=== PATIENT | male | born 1985 | race Caucasian/White ===

== ENCOUNTER 2018-08-16 19:38 | Emergency (ER) | payer OTHER ==
[~2018-08-16] VITALS: Ht 185.4 cm; Wt 117.9 kg
--- OUTSIDE RECORDS SUMMARY | ~2018-08-16 | XMS | Clinical Summary ---
Demographics + + + | Address | [address] | | | [place] [address] | + + + | Home Phone | | + + + | Preferred Language | Unknown | + + + | Marital Status | Single | + + + | Hoahaoism Affiliation | Unknown | + + + | Race | Unknown | + + + | Ethnic Group | Unknown | + + + Author + + + | Author | [facility] | + + + | Organization | [facility] | + + + | Address | Unknown | + + + | Phone | Unavailable | + + + Support + + +---------+ + | Name | Relationship | Address | Phone | + + +---------+ + | Laura Oleary | ECON | Unknown | | + + +---------+ + Care Team Providers + +------+ + | Care Firearms Specialist Name | Role | Phone | + +------+ + | Medicine, Benedict | PP | Unavailable | | Family | | | + +------+ + Allergies + + + + + + | Active Allergy | Reactions | Severity | Noted | Comments | | | | | Date | | + + + + + + | Morphine | Rash | Medium | 11/30/19 | | | | | | 18 | | + + + + + + Current Medications + + + +---------+------+------+-------+ | Prescription | Sig. | Disp. | Refills | Star | End | Statu | | | | | | t | Date | s | | | | | | Date | | | + + + +---------+------+------+-------+ | omeprazole | Take 20 mg by mouth | | | | | Activ | | (PRILOSEC) 20 MG | every morning before | | | | | e | | capsule | breakfast. | | | | | | + + + +---------+------+------+-------+ | propranolol | Take 1 tablet by | 60 | 11 | 11/12 | 11/12 | Activ | | (INDERAL) 20 MG | mouth 2 (two) times | tablet | | 08/01 | 08/01 | e | | tablet | daily. | | | 18 | 19 | | + + + +---------+------+------+-------+ | sucralfate | Take 10 mLs by mouth | 420 mL | 0 | 01/2 | | Activ | | (CARAFATE) 1 GM/10ML | every 6 (six) hours | | | 0/20 | | e | | suspension | for 30 days. | | | 18 | | | + + + +---------+------+------+-------+ | Heparin Sod, | Continuous heparin | | | 11/12 | | Activ | | Porcine, in D5W | drip per protocol. | | | 08/01 | | e | | (HEPARIN, PORCINE,) | | | | 18 | | | | 40-5 UNIT/ML-% | | | | | | | | infusion | | | | | | | + + + +---------+------+------+-------+ | nadolol (CORGARD) | Take 10 mg by mouth. | | | 11/13 | | Activ | | 20 MG tablet | | | | 03/31 | | e | | | | | | 18 | | | + + + +---------+------+------+-------+ | pantoprazole | Take 40 mg by mouth. | | | 11/13 | | Activ | | (PROTONIX) 40 MG | | | | 03/01 | | e | | tablet | | | | 18 | | | + + + +---------+------+------+-------+ | warfarin | Take one daily until | | | 11/13 | | Activ | | (COUMADIN) 7.5 MG | follow up with your | | | 03/01 | | e | | tablet | new dr for new INR, | | | 18 | | | | | your future doses | | | | | | | | will depend on your | | | | | | | | INR values | | | | | | + + + +---------+------+------+-------+ Active Problems + + + | Problem | Noted Date | + + + | Portal vein thrombosis | 01/24/2018 | + + + | Shortness of breath | 01/24/2018 | + + + | Anticoagulation management encounter | 01/24/2018 | + + + | History of esophageal varices with bleeding | 11/30/2017 | + + + | Protein S deficiency (HCC) | 11/30/2017 | + + + | History of melena | 11/30/2017 | + + + | Deep vein thrombosis (DVT) of popliteal vein (HCC) nonocclusive | 11/30/2017 | | on the left | | + + + | Bilateral pulmonary embolism (HCC) | 11/30/2017 | + + + Family History + + +------+ + | Medical History | Relation | Name | Comments | + + +------+ + | COPD | Maternal | | | | | Grandfath | | | | | er | | | + + +------+ + | Breast cancer | Maternal | | | | | Grandmoth | | | | | er | | | + + +------+ + | Cancer | Maternal | | | | | Grandmoth | | | | | er | | | + + +------+ + | Cancer | Paternal | | | | | Grandmoth | | | | | er | | | + + +------+ + + +------+--------+ + | Relation | Name | Status | Comments | + +------+--------+ + | Brother | | Alive | | + +------+--------+ + | Father | | Alive | | + +------+--------+ + | Maternal Grandfather | | Alive | | + +------+--------+ + | Maternal Grandmother | | Alive | | + +------+--------+ + | Mother | | Alive | | + +------+--------+ + | Paternal Grandmother | | Alive | | + +------+--------+ + Social History + +-------+ +--------+------+ | Tobacco Use | Types | Packs/Day | Years | Date | | | | | Used | | + +-------+ +--------+------+ | Never Smoker | | | | | + +-------+ +--------+------+ + +---+---+---+ | Smokeless Tobacco: | | | | | Never Used | | | | + +---+---+---+ + + +---------+ + | Alcohol Use | Drinks/We | oz/Week | Comments | | | ek | | | + + +---------+ + | Yes | | | | + + +---------+ + + + + | Sex Assigned at | Date Recorded | | | | + + + | Not on file | | + + + Last Filed Vital Signs + + + + | Vital Sign | Reading | Time Taken | + + + + | Blood Pressure | 110/80 | 01/24/2018 10:36 AM PDT | + + + + | Pulse | 65 | 01/24/2018 10:36 AM PDT | + + + + | Temperature | 36.3 C (97.4 F) | 01/24/2018 10:36 AM PDT | + + + + | Respiratory Rate | 20 | 11/30/2017 5:04 PM PST | + + + + | Oxygen Saturation | 98% | 01/24/2018 10:36 AM PDT | + + + + | Inhaled Oxygen | - | - | | Concentration | | | + + + + | Weight | 115.2 kg (254 lb) | 01/24/2018 10:36 AM PDT | + + + + | Height | 182.9 cm (6') | 01/24/2018 10:36 AM PDT | + + + + | Body Mass Index | 34.45 | 01/24/2018 10:36 AM PDT | + + + + Plan of Treatment + + + + + | Health Maintenance | Due Date | Last Done | Comments | + + + + + | Vaccine: | | | | | Dtap/Tdap/Td (1 - | 5 | | | | Tdap) | | | | + + + + + | Vaccine: Influenza | | 12/04/2017 | | | (#1) | 8 | | | + + + + + Results Not on filefrom Last 3 Months Insurance + +--------+ +------+-------+ + | Payer | Benefi | Subscriber | Type | Phone | Address | | | t Plan | ID | | | | | | / | | | | | | | Group | | | | | + +--------+ +------+-------+ + | MEDICAID | [place] | [id number] | | | [address] | | | N | | | | [place] | | | [place] | | | | [phone] | | | MANAGER RESPIRATORY CARE | | | | | + +--------+ +------+-------+ + + +--------+ +--------+ + + | Guarantor Name | Accoun | Relation to | Date | Phone | Billing Address | | | t Type | Patient | of | | | | | | | | | | + +--------+ +--------+ + + | DOMENIC HOLDER | Person | Self [birth year] | Home: | [address] | | W | al/Fam | | 1984 | [phone] | [place] [address] | | | malia | | | [phone] | | + +--------+ +--------+ + +"
--- OUTSIDE RECORDS SUMMARY | ~2018-08-16 | XMS | Clinical Summary ---
Demographics + + + | Address | [address] | | | [place] [address] | + + + | Home Phone | | + + + | Preferred Language | Unknown | + + + | Marital Status | Single | + + + | Zoroastrian Affiliation | CHR | + + + | Race | White | + + + | Ethnic Group | Not or | + + + Author + + + | Author | [facility] | + + + | Organization | [facility] | + + + | Address | Unknown | + + + | Phone | Unavailable | + + + Support + + +---------+ + | Name | Relationship | Address | Phone | + + +---------+ + | RAGHAV JAIMES | ECON | Unknown | | + + +---------+ + Care Team Providers + +------+ + | Care Parimutuel Ticket Seller Name | Role | Phone | + +------+ + | Joe Mccracken MD | PP | | + +------+ + Source Comments MILAD is fully live on both [facility] and [facility] Allergies + + + + + + | Active Allergy | Reactions | Severity | Noted | Comments | | | | | Date | | + + + + + + | Morphine | Rash | | 12/05/19 | | | | | | 17 | | + + + + + + Current Medications + + + +---------+------+------+-------+ | Prescription | Sig. | Disp. | Refills | Star | End | Statu | | | | | | t | Date | s | | | | | | Date | | | + + + +---------+------+------+-------+ | enoxaparin 120 | Inject 0.8 mL under | 60 | 2 | 07/1 | | Activ | | mg/0.8 mL | the skin (SUBC) | Syringe | | 2/20 | | e | | Subcutaneous Syringe | every twelve hours. | | | 11 | | | + + + +---------+------+------+-------+ | metoprolol | Take 1 Tab by mouth | 60 Tab | 1 | 07/1 | | Activ | | tartrate 25 mg Oral | two times daily. | | | 2/20 | | e | | Tablet | | | | 11 | | | + + + +---------+------+------+-------+ | fentaNYL 75 mcg/hr | Apply 1 Patch to | 11 | 0 | 07/1 | | Activ | | Transdermal Patch | skin every | Patch | | 2/20 | | e | | 72 hr | seventy-two hours. | | | 11 | | | + + + +---------+------+------+-------+ | lansoprazole 30 mg | Take 1 Tab by mouth | 30 Tab | 3 | 05/13 | | Activ | | Oral Tablet,Rapid | once daily in the | | | 08/01 | | e | | DR Miguel A | morning. Administer | | | 11 | | | | | before food; best if | | | | | | | | taken before | | | | | | | | breakfast. | | | | | | + + + +---------+------+------+-------+ | | Take 1-2 Tabs by | 40 Tab | 1 | 05/13 | | Activ | | HYDROcodone-acetamin | mouth every six | | | 08/01 | | e | | ophen 5-325 mg Oral | hours as needed. Not | | | 11 | | | | Tablet | to exceed 12 | | | | | | | | tablets per any 24 | | | | | | | | hour period. (Not to | | | | | | | | exceed 4000 mg of | | | | | | | | acetaminophen from | | | | | | | | all products per 24 | | | | | | | | hour period.) | | | | | | + + + +---------+------+------+-------+ | traMADol 50 mg | Take 1 tablet by | | | 12/0 | | Activ | | oral tablet | mouth as needed. | | | 01/01 | | e | | | | | | 16 | | | + + + +---------+------+------+-------+ Active Problems + + + | Problem | Noted Date | + + + | Small bowel obstruction (HCC) | 06/02/2011 | + + + | Thrombus | 05/08/2011 | + + + + + | Overview: Nonocclusive Portal vein | + + + + + | Acute pain | 05/08/2011 | + + + | Severe malnutrition (HCC) | 05/08/2011 | + + + | Wound, open, abdominal wall, anterior | 05/08/2011 | + + + | Abdominal pain | 05/03/2011 | + + + Resolved Problems + + + + | Problem | Noted | Resolved | | | Date | Date | + + + + | Leukocytosis | 05/08/20 | | | | 11 | 1 | + + + + Social History + +-------+ +--------+------+ | [...] +---------+ + | Yes | | | one or two beers /week | + + +---------+ + + + + | Sex Assigned at | Date Recorded | | | | + + + | Not on file | | + + + Last Filed Vital Signs + + + + | Vital Sign | Reading | Time Taken | + + + + | Blood Pressure | 145/78 | 12/05/2016 2:32 PM PST | + + + + | Pulse | 72 | 12/05/2016 2:32 PM PST | + + + + | Temperature | 36.8 C (98.2 F) | 12/05/2016 2:32 PM PST | + + + + | Respiratory Rate | 12 | 12/05/2016 2:32 PM PST | + + + + | Oxygen Saturation | 97% | 12/05/2016 2:32 PM PST | + + + + | Inhaled Oxygen | - | - | | Concentration | | | + + + + | Weight | 112.8 kg (248 lb 9.6 | 12/05/2016 2:32 PM PST | | | oz) | | + + + + | Height | 182.5 cm (5' 11.85") | 12/05/2016 2:32 PM PST | + + + + | Body Mass Index | 33.86 | 12/05/2016 2:32 PM PST | + + + + Plan of Treatment + + + + + | Health Maintenance | Due Date | Last Done | Comments | + + + + + | Pneumococcal (Adult) | | 01/30/2014 | | | (2 of 3 - PCV13) | 5 | | | + + + + + | Influenza (Flu) | | 01/30/2014 | | | vaccination (#1) | 8 | | | + + + + + Results Not on filefrom Last 3 Months Insurance + +--------+ +--------+-------+---------+ | Payer | Benefi | Subscriber | Type | Phone | Address | | | t Plan | ID | | | | | | / | | | | | | | Group | | | | | + +--------+ +--------+-------+---------+ | DIRECTOR CREDIT RISK MEDICAID | DIRECTOR CREDIT RISK | xxxxxxxx | Medica | | | | | [place] | | id | | | | | [place] | | | | | + +--------+ +--------+-------+---------+ + +--------+ +--------+ + + | Guarantor Name | Accoun | Relation to | Date | Phone | Billing Address | | | t Type | Patient | of | | | | | | | | | | + +--------+ +--------+ + + | DOMENIC SUMMERS | Person | Self | [birth year] | Home: | [address] [employer] | | [place] | al/[place] | | 1984 | [phone] | [place] [address] | | | malia | | | [phone] | | + +--------+ +--------+ + +
--- OUTSIDE RECORDS SUMMARY | ~2018-08-16 | XMS | Clinical Summary ---
Demographics + + + | Address | [address] | | | [place] [address] | + + + | Home Phone | | + + + | Preferred Language | Unknown | + + + | Marital Status | Single | + + + | Evangelical Affiliation | Unknown | + + + | Race | Unknown | + + + | Ethnic Group | Unknown | + + + Author + + + | Author | [facility] | | | and [place] | + + + | Organization | [facility] | | | and [place] | + + + | Address | Unknown | + + + | Phone | Unavailable | + + + Support + + + + + | Name | Relationship | Address | Phone | + + + + + | Laura Oleary | ECON | [place], [place] | | + + + + + | Gregor Scales | ECON | [address] | | | | | [address] [place] | | | | | [address] | | + + + + + Care Team Providers + +------+ + | Care Board Member Name | Role | Phone | + +------+ + | No, Physician | PP | Unavailable | + +------+ + Allergies + + + + + + | Active Allergy | Reactions | Severity | Noted | Comments | | | | | Date | | + + + + + + | Morphine | Itching, Rash | Medium | 11/30/19 | | | | | | 18 | | + + + + + + Current Medications + + +---------+---------+------+------+-------+ | Prescription | Sig. | Disp. | Refills | Star | End | Statu | | | | | | t | Date | s | | | | | | Date | | | + + +---------+---------+------+------+-------+ | nadolol (CORGARD) | Take 0.5 tablets by | 30 | 1 | 11/13 | | Activ | | 20 MG tablet | mouth Daily. | tablet | | 03/31 | | e | | | | | | 18 | | | + + +---------+---------+------+------+-------+ | pantoprazole | Take 1 tablet by | 30 | 1 | 11/13 | | Activ | | (PROTONIX) 40 mg | mouth every morning | tablet | | 4/20 | | e | | tablet | (before breakfast). | | | 18 | | | + + +---------+---------+------+------+-------+ | warfarin | Take 2 tablets by | 30 | 0 | 04/1 | | Activ | | (COUMADIN) 6 MG | mouth Daily. | tablet | | 8/20 | | e | | tablet | | | | 18 | | | + + +---------+---------+------+------+-------+ | enoxaparin | Inject 0.8 mLs under | 14 | 0 | 04/1 | | Activ | | (LOVENOX) 120 mg/0.8 | the skin every 12 | Syringe | | 8/20 | | e | | mL injection | hours. Until | | | 18 | | | | | coumadin level is >2 | | | | | | + + +---------+---------+------+------+-------+ Active Problems + + + | Problem | Noted Date | + + + | Noncompliance with medications | 02/27/2018 | + + + | Anemia | 02/24/2018 | + + + | Prolonged Q-T interval on ECG | 02/24/2018 | + + + | Antral ulcer | 12/04/2017 | + + + | Antral gastritis | 12/04/2017 | + + + | Portal hypertensive gastropathy (HCC) | 12/04/2017 | + + + | Portal vein thrombosis | 12/03/2017 | + + + | Acute deep vein thrombosis (DVT) of femoral vein of left lower | 12/02/2017 | | extremity (HCC) | | + + + | PE (pulmonary thromboembolism) ([facility]) | 11/30/2017 | + + + + + | Last Assessment & Plan: Patient with symptomatic pulmonary | | emboli. Likely secondary to his protein S deficiency. Patient | | was on warfarin but developed esophageal variceal bleeding. | | Patient restarted on heparin drip. Patient asymptomatic until he | | exerts himself. Will continue patient on heparin drip and | | transferred to ICU at [place]. | + + + + + | Protein S deficiency ([facility]) | 11/30/2017 | + + + + + | Last Assessment & Plan: Patient with history of protein S | | deficiency resulting in increased thrombophilia. Patient has | | been on Coumadin secondary to portal vein clot. This was stopped | | once patient developed variceal bleeding. Patient has not seen | | GI physician. Patient currently on heparin drip secondary to | | pulmonary emboli and right lower extremity DVT along with portal | | vein thrombus. Will await further CT findings. | + + + + + | History of necrotic bowel | 11/30/2017 | + + + + + | Last Assessment & Plan: Patient with a history of necrotic | | bowel on the past. Patient did require resection. Patient does | | not have any follow-up problems that he is aware of since that | | time. Patient does endorse on and off again rectal bleeding. | + + + + + | Esophageal varices (HCC) | 11/30/2017 | + + + + + | Last Assessment & Plan: Patient with endoscopy today showing | | ballooning of his esophageal varices. Patient was thought to be | | at very high risk for possible esophageal bleeding and was | | transferred from outside facility here. Lack of services here | | require patient being transferred to [place] for further | | evaluation and treatment. Currently patient not with esophageal | | bleeding. Patient started on octreotide and CT of the abdomen | | with pulse portal exam pending. | + + Immunizations + + + + | Name | Dates Previously Given | Next Due | + + + + | INFLUENZA PF | 12/04/2017 | | | QUAD(PED/ADOL/ADULT) | | | | ,PSKT or VIAL | | | + + + + Social History [...] +---------+ + | Yes | | | OCCASIONALLY | + + +---------+ + + + + | Sex Assigned at | Date Recorded | | | | + + + | Not on file | | + + + Last Filed Vital Signs + + + + | Vital Sign | Reading | Time Taken | + + + + | Blood Pressure | 141/83 | 02/27/20181099 PDT | + + + + | Pulse | 76 | 02/27/20181099 PDT | + + + + | Temperature | 36.1 C (97 F) | 02/27/20181099 PDT | + + + + | Respiratory Rate | 18 | 02/27/20181099 PDT | + + + + | Oxygen Saturation | 96% | 02/27/20181099 PDT | + + + + | Inhaled Oxygen | - | - | | Concentration | | | + + + + | Weight | 114.7 kg (252 lb | 02/26/20182336 PDT | | | 13.9 oz) | | + + + + | Height | 182.9 cm (6') | 02/24/2018 0950 PDT | + + + + | Body Mass Index | 34.29 | 02/26/20182336 PDT | + + + + Plan [...] filefrom Last 3 Months Insurance + +--------+ +--------+ +---------+ | Payer | Benefi | Subscriber | Type | Phone | Address | | | t Plan | ID | | | | | | / | | | | | | | Group | | | | | + +--------+ +--------+ +---------+ | [employer] | MODA | [id number] | Medica | [phone] | | MEDICAID HMO | HEALTH | | id | 9821 | | | | [place] | | | | | | | [place] | | | | | + +--------+ +--------+ +---------+ + +--------+ +--------+ + + | Guarantor Name | Accoun | Relation to | Date | Phone | Billing Address | | | t Type | Patient | of | | | | | | | | | | + +--------+ +--------+ + + | DOMENIC SUMMERS | Person | Self | [birth year] | Home: | [address] | | [place] | al/Fam | | 1984 | [phone] | [place] [address] | | | [place] | | | [address] | | + +--------+ +--------+ + +"
--- OUTSIDE RECORDS SUMMARY | ~2018-08-16 | XMS | Clinical Summary ---
Demographics + + + | Address | [address] | | | [place] [address] | + + + | Home Phone | | + + + | Preferred Language | Unknown | + + + | Marital Status | Single | + + + | Shinto Affiliation | Unknown | + + + | Race | Unknown | + + + | Ethnic Group | Unknown | + + + Author + + + | Author | [facility] | + + + | Organization | [facility] | + + + | Address | Unknown | + + + | Phone | Unavailable | + + + Support + + +---------+ + | Name | Relationship | Address | Phone | + + +---------+ + | Laura Oleary | ECON | Unknown | | + + +---------+ + Care Team Providers + +------+ + | Care Thermoscrew Operator Name | Role | Phone | + +------+ + | Medicine, [place] | PP | Unavailable | | Family [...] +------+-------+ + | MEDICAID | [place] | [id number] | | | [address] | | | [place] | | | | [place] | | | [place] | | | | [phone] | | | SLITTER PROCESSED FILM | | | | | + +--------+ [...] | Self | [birth year] | Home: | [address] | | [place] | al/Fam | | 1984 | [phone] | [place] [address] | | | [place] | | | [phone] | | + +--------+ +--------+ + +"
--- OUTSIDE RECORDS SUMMARY | ~2018-08-16 | XMS | Clinical Summary ---
Demographics + + + | Address | [address] | | | [place] [address] | + + + | Home Phone | | + + + | Preferred Language | Unknown | + + + | Marital Status | Single | + + + | Jehovah'S Witness Affiliation | Unknown | + + + | Race | Unknown | + + + | Ethnic Group | Unknown | + + + Author + + + | Author | [facility] | | | and [place] | + + + | Organization | [facility] | | | and [place] | [...] [address] [place] | | | | | [address] | | + + + + + Care Team Providers + +------+ + | Care Suction Worker Name | Role | Phone | + [...] + + + | [facility] | 11/30/2017 | + + + + [...] and | | transferred to ICU at [place]. | + + + + + | Protein S deficiency ([facility]) | 11/30/2017 | + + + + [...] | | require patient being transferred to [place] for further | | evaluation and treatment. [...] | [employer] | MODA | [id number] | Medica | [phone] | | | MEDICAID HMO | HEALTH [...] | 1984 | [phone] | [place] [address] | | | [place] | | | [phone] | | + +--------+ +--------+ + +"
--- OUTSIDE RECORDS SUMMARY | ~2018-08-16 | XMS | Clinical Summary ---
Demographics + + + | Address | [address] | | | [place] [address] | + + + | Home Phone | | + + + | Preferred Language | Unknown | + + + | Marital Status | Single | + + + | Church Affiliation | [employer] | + + + [...] Team Providers + +------+ + | Care Bath Steward Name | Role | Phone | + +------+ + | Joe Mccracken MD | PP | | + +------+ + Source Comments MILAD is fully live on both [facility] and [facility] Allergies + + + + [...] | | | + +--------+ +--------+-------+---------+ | CREDIT COMPLIANCE OFFICER MEDICAID | CREDIT COMPLIANCE OFFICER | xxxxxxxx | Medica | | | [...] [birth year] | Home: | [address] [employer] | | FRANK | al/Jeffrey | | 1984 | [phone] [place] [address] | | | malia | | | [phone] | | + +--------+ +--------+ + +
[~2018-08-16 19:38] MED LIST: BACTRIM DS TAB1 EACH PO; COUMADIN10 MG PO; COUMADIN5 MG PO; DOXYCYCLINE HY100 MG PO; HYDROCHLOROTHIA25 MG PO; IBUPROFEN600 MG PO; INDOMETHACIN50 MG PO; KEFLEX250 MG PO; KEFLEX500 MG PO; MIRALAX17 GM PO; NAPROXEN500 MG PO; NICOTINE PATCH1 EACH TD; NORCO 5-325 TA1 EACH PO; NORCO 7.5-3251 EACH PO; PANTOPRAZOLE SO40 MG PO; PERCOCET 10-321 EACH PO; TRAMADOL HCL50 MG PO; VICODIN 5-3001 EACH PO; WARFARIN SODIUM5 MG PO; ZOFRAN ODT4 MG PO
--- OUTSIDE RECORDS SUMMARY | 2018-08-16 19:44 | XMS ---
PreManage Notification: LLOYD SUMMERS Security Tool Planer Set Up Operator Events No recent Security Events currently on file CRITERIA MET - Group Notification CARE PROVIDERS There are no care providers on record at this time. Xavier has no Care Guidelines for this patient. EJennifer VISIT COUNT (12 MO.) [address] [place] [address] [place] TOTAL 6 NOTE: Visits indicate total known visits. ED/C VISIT TRACKING (12 MO.) 08/16/2018 19:40 [facility] [place] TYPE: Emergency COMPLAINT: - COLD SYMPTOMS 02/24/2018 01:56 [facility] [employer] [place] System TYPE: Emergency COMPLAINT: - TROUBLES BREATHING DIAGNOSES: - Other pulmonary embolism without acute cor pulmonale [facility] DIAGNOSES: - Other pulmonary embolism without acute cor pulmonale - Pain, unspecified - Shortness of Breath 11/29/2017 23:10 [facility] [employer] [place] System TYPE: Emergency COMPLAINT: - SHORTNESS OF BREATH DIAGNOSES: - Secondary esophageal varices without bleeding - Other primary thrombophilia - Gastrointestinal hemorrhage, unspecified - Other pulmonary embolism with acute cor pulmonale - PULMONARY HYPERTENSION, UNSPECIFIED - Portal hypertension 11/19/2017 07:[address] [facility] [place] TYPE: Emergency COMPLAINT: - POSS INTERNAL BLEEDING DIAGNOSES: - Gastrointestinal hemorrhage, unspecified 09/17/2017 08:30 [facility] [place] System TYPE: Emergency COMPLAINT: - L LEG PAIN DIAGNOSES: - Pain in left lower leg INPATIENT VISIT TRACKING (12 MO.) 02/24/2018 09:46 [facility] TYPE: Cardiology DIAGNOSES: - Iron deficiency anemia secondary to blood loss (chronic) - Other primary thrombophilia - Esophageal varices without bleeding - Portal vein thrombosis - Abnormal electrocardiogram [ECG] [EKG] - pulmonary emboli - Other pulmonary embolism without acute cor pulmonale - Portal hypertension - Other diseases of stomach and duodenum 12/01/2017 01:00 [facility] TYPE: Transplant DIAGNOSES: - Other pulmonary embolism without acute cor pulmonale - Other primary thrombophilia - Acute embolism and thrombosis of unspecified deep veins of unspecified lower extremity - Esophageal varices without bleeding - Other diseases of stomach and duodenum - Portal vein thrombosis - Secondary esophageal varices without bleeding - Portal hypertension - Acute embolism and thrombosis of left femoral vein 11/30/2017 21:26 [facility] TYPE: Cardiology DIAGNOSES: - Acute Bilateral PE 11/30/2017 04:35 [facility] TYPE: General Medicine DIAGNOSES: - Other pulmonary embolism without acute cor pulmonale - Pain, unspecified [email or web address]
[2018-08-16] MEDS ORDERED: ELIQUIS5 MG PO (19:57)
[2018-08-16] MEDS ORDERED: TESSALON PERLE100 MG PO (21:05)
== END 2018-08-16 21:14 | disposition home or self-care (01) ==
LOC: ED 19:38
DX: J20.9 Acute bronchitis, unspecified (principal); Z88.5 Allergy status to narcotic agent
CPT/HCPCS: 99283

== ENCOUNTER 2021-03-23 00:08 | Emergency (ER) | payer OTHER ==
[~2021-03-23] VITALS: Ht 185.4 cm; Wt 122.9 kg
[~2021-03-23 00:08] MED LIST changes: +ELIQUIS5 MG PO; +TESSALON PERLE100 MG PO
--- OUTSIDE RECORDS SUMMARY | 2021-03-23 00:10 | XMS ---
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 Care History Medical/Surgical 08/19/2018 [facility] - CHW SPOKE WITH PATIENT ABOUT ESTABLISHING CARE WITH A PCP IN THE AREA/ [facility]. - PATIENT JUST MOVED TO [place] AND HAS A PCP IN [place]. - CHW REFERRED PATIENT TO WALK IN CLINIC FOR ANY AND ALL NON EMERGENT MEDICAL NEEDS IN THE FUTURE. - CHW PROVIDED CONTACT NUMBER AND STATED TO FILL OUT NEW PATIENT PAPERWORK AT [facility] TO ESTABLISH WITH A PROVIDER THAT IS CLOSE BY. - PATIENT STATED HE WOULD SET UP /FILL OUT PAPERWORK WITH [facility]. E.D. VISIT COUNT (12 MO.) 1 [facility] 1 [facility] TOTAL 2 NOTE: Visits indicate total known visits. ED/UCC VISIT TRACKING (12 MO.) 03/23/2021 00:[address] [facility] [address] [facility] [place] TYPE: Emergency COMPLAINT: - ABD PAIN 05/31/2020 21:27 [facility] DIAGNOSES: - Knee pain - Sprain of unspecified site of right knee, initial encounter INPATIENT VISIT TRACKING (12 MO.) No inpatient visits to display in this time frame [email or web address]
[2021-03-23] MEDS ORDERED: NADOLOL20 MG PO (00:23)
== END 2021-03-23 02:25 | disposition home or self-care (01) ==
LOC: ED 00:08
DX: R10.9 Unspecified abdominal pain (principal); Z88.5 Allergy status to narcotic agent; Z79.899 Other long term (current) drug therapy
CPT/HCPCS: 74177; 80053; 81001; 83690; 85025; 96374; 96375; 96376; 99284-25; J1170; J2405; Q9967